=== PATIENT | female | born 1940 | race Two or more races ===

== ENCOUNTER 2017-01-11 21:52 | Emergency (ER) | payer MEDICARE ==
[~2017-01-11] VITALS: Ht 154.9 cm; Wt 61.7 kg
--- NOTE | 2017-01-11 22:02 | PHYS DOC ---
Adult General Chief Complaint Chief Complaint: MECHANICAL FALL HPI HPI Patient is a 76 year old female who presents with fall. She was at the [employer] and lost her balance on the escalator. She is blind but had someone with her. She hit her head. No LOC. No neck or back pain. No injuries to chest or abdomen. Review of Systems Review of Systems Constitutional: Denies fever or chills Eyes: Denies change in visual acuity, redness, or eye pain HENT: Denies nasal congestion or sore throat Respiratory: Denies cough or shortness of breath Cardiovascular: No chest pain GI: Denies abdominal pain, nausea, vomiting, bloody stools or diarrhea : Denies dysuria or hematuria Musculoskeletal: Denies back pain or joint pain Integument: Denies rash or skin lesions Neurologic: Denies headache, focal weakness or sensory changes; no syncope Allergies Allergies Allergies Coded Allergies Type Severity Reaction Last Updated Verified No Known Drug Allergies 01/11/17 No Physical Exam Physical Exam Constitutional: Well developed, well nourished, no acute distress, non-toxic appearance. HENT: Normocephalic, atraumatic, bilateral external ears normal, oropharynx moist, no oral exudates, nose normal. Abrasion to right upper scalp area near forehead. Eyes: PERRLA, EOMI, conjunctiva normal, no discharge. Neck: Normal range of motion, no tenderness, supple, no stridor. Non tender to palpation of cervical spine. No crepitance. Cardiovascular:Heart rate regular rhythm, no murmur Lungs & Thorax: Bilateral breath sounds clear to auscultation Abdomen: Bowel sounds normal, soft, no tenderness, no masses, no pulsatile masses. Skin: Warm, dry, no erythema, no rash. Back: No tenderness, no CVA tenderness. Extremities: No tenderness, no cyanosis, no clubbing, ROM intact, no edema. Neurologic: Alert and oriented X 3, normal motor function, normal sensory function, no focal deficits noted. Current Patient Data Vital Signs Vital Signs Date Time Temp Pulse Resp B/P (MAP) Pulse Ox O2 Delivery O2 Flow Rate FiO2 01/11/17 23:05 80 22 164/80 (108) 98 Room Air 01/11/17 21:55 98.1 98.1 Radiology/Procedures Radiology/Procedures [facility] [address] [place] [address] IMAGING REPORT Signed PATIENT: KALPANA SANTANA ACCOUNT: [id number] : 1940 LOCATION: ER AGE: 76 SEX: F EXAM STATUS: PRE ER ORD. PHYSICIAN: BIMAL HARRINGTON MD REASON: fall hit right forehead PROCEDURE: CT HEAD AND CERVICAL SPINE WO CT head without contrast: Reason for examination: Fell and hit right forehead. Axial images were obtained through the brain. No contrast was administered. Ventricular systems are symmetric and not abnormally dilated. No midline shift is seen. There is some peripheral atrophy with widening of the prefrontal spaces bilaterally. No acute hemorrhage, infarct, mass or edema is seen. There are polypoid lesions in the maxillary antra bilaterally. The remaining paranasal sinuses are clear. Mastoid air cells are clear. Chronic calcifications are seen in the left orbit. The right orbit shows no acute abnormalities. No acute abnormality seen in the skull. IMPRESSION: Peripheral atrophy. No acute intracranial abnormality evident. Polypoid lesions in the maxillary antra bilaterally. CT cervical spine without contrast: Helical images were obtained through the cervical spine from skull base through the thoracic apices. Reconstruction was performed in sagittal and coronal planes. No contrast was administered. The C1 ring is intact. The odontoid process appears to be intact and normally centered between the lateral masses of C1. The cervical vertebral bodies are normally aligned anteriorly and posteriorly. No acute fracture or subluxation is seen. There are degenerative changes with hypertrophic spurs from C4 through C7. The intervertebral disc spaces however are fairly well-maintained. Prevertebral soft tissues are normal. IMPRESSION: No acute abnormality evident in the cervical spine. Exposure: One or more of the following individualized dose reduction techniques were utilized for this examination: 1. Automated exposure control 2. Adjustment of the mA and/or kV according to patient size 3. Use of iterative reconstruction technique. Electronically signed by: Shanita Lopez MD (01/11/2017 11:18 PM) [facility] [id number] DICTATED and SIGNED BY: SHANITA LOPEZ MD DATE: 01/11/17 [id number] CC: BIMAL HARRINGTON MD ~ Course & Med Decision Making Course & Med Decision Making Evaluated patient upon arrival; CT ordered. No other complaints or injuries. At 2345 PM: CT results negative. Reviewed findings w family. Home w family. I have spoken with the patient and/or caregivers. I have explained the patient' s condition, diagnosis and treatment plan based on the information available to me at this time. I have answered the patient's and/or caregiver's questions and addressed any concerns. The patient and/or caregivers have as good an understanding of the patient's diagnosis, condition and treatment plan as can be expected at this point. The patient's condition is stable and appropriate for discharge from the emergency department. The patient will pursue further outpatient evaluation with the primary care physician or other designated or consulting physician as outlined in the discharge instructions. The patient and/or caregivers are agreeable to this plan of care and follow-up instructions have been explained in detail. The patient and/or caregivers have received these instructions in written format and have expressed an understanding of the discharge instructions. The patient and/or caregivers are aware that any significant change in condition or worsening of symptoms should prompt an immediate return to this or the closest emergency department or a call to 911. Dragon Disclaimer Dragon Disclaimer This electronic medical record was generated, in whole or in part, using a voice recognition dictation system. Departure Departure Impression: Primary Impression: Fall Additional Impression: Scalp contusion Disposition: HOME, SELF-CARE Condition: GOOD Patient Instructions: Facial or Scalp Contusion Problem Qualifiers Primary Impression: Fall Encounter type: initial encounter Qualified Codes: W19.XXXA - Unspecified fall, initial encounter Additional Impression: Scalp contusion Encounter type: initial encounter Qualified Codes: S00.03XA - Contusion of scalp, initial encounter BIMAL HARRINGTON MD Jan 11, 2017 22:02
[2017-01-11 23:05] VITALS: BP 164/80
--- NOTE | 2017-01-11 23:22 | RAD ---
CT head without contrast: Reason for examination: Fell and hit right forehead. Axial images were obtained through the brain. No contrast was administered. Ventricular systems are symmetric and not abnormally dilated. No midline shift is seen. There is some peripheral atrophy with widening of the prefrontal spaces bilaterally. No acute hemorrhage, infarct, mass or edema is seen. There are polypoid lesions in the maxillary antra bilaterally. The remaining paranasal sinuses are clear. Mastoid air cells are clear. Chronic calcifications are seen in the left orbit. The right orbit shows no acute abnormalities. No acute abnormality seen in the skull. IMPRESSION: Peripheral atrophy. No acute intracranial abnormality evident. Polypoid lesions in the maxillary antra bilaterally. CT cervical spine without contrast: Helical images were obtained through the cervical spine from skull base through the thoracic apices. Reconstruction was performed in sagittal and coronal planes. No contrast was administered. The C1 ring is intact. The odontoid process appears to be intact and normally centered between the lateral masses of C1. The cervical vertebral bodies are normally aligned anteriorly and posteriorly. No acute fracture or subluxation is seen. There are degenerative changes with hypertrophic spurs from C4 through C7. The intervertebral disc spaces however are fairly well-maintained. Prevertebral soft tissues are normal. IMPRESSION: No acute abnormality evident in the cervical spine. Exposure: One or more of the following individualized dose reduction techniques were utilized for this examination: 1. Automated exposure control 2. Adjustment of the mA and/or kV according to patient size 3. Use of iterative reconstruction technique. Electronically signed by: Shanita Solorzano MD (01/11/2017 11:18 PM) [facility]
== END 2017-01-12 00:20 | disposition home or self-care (01) ==
LOC: ER 21:52
DX: S00.03XA Contusion of scalp, initial encounter (principal); W18.09XA Striking against other object with subsequent fall, initial encounter; Y93.89 Activity, other specified; Y99.8 Other external cause status; Y92.89 Other specified places as the place of occurrence of the external cause
CPT/HCPCS: 70450; 72125; 99284-25